=== PATIENT | female | born 1960 | race American Indian/Alaskan Native ===

== ENCOUNTER 2020-09-22 08:55 | Emergency (ER) | payer SELFPAY ==
[2020-09-22] MEDS ORDERED: hydrALAZINE 25 MG TAB PO ONE ×2 (09:01→09:58)
--- NOTE | 2020-09-22 09:10 | Emergency Department Report ---
ED General Adult HPI - General Chief complaint: High BP Stated complaint: BLOOD PRESSURE Time Seen by Provider: 09/22/20 08:58 Source: patient Mode of arrival: Ambulatory Limitations: No Limitations - History of Present Illness Initial comments: 60-year-old -[place] female patient presents with complaints of elevated blood pressure today. She reports that she has been out of her blood pressure medication for 1 month due to being laid off and that upon waking this morning, she had a mild headache that she describes as a tightness around her head. Patient reports when she checked her blood pressure it was in the 220s systolically. Patient states her blood pressure normally runs around 120/80 when she is compliant with her losartan/HCTZ combo med. She denies any vision changes, nausea/vomiting, worst headache of her life, thunderclap onset, numbness/tingling/weakness in her limbs, difficulty with speech/ambulation, confusion, or memory loss. No history of CVA per patient. She denies any other past medical history. Patient states she is otherwise feeling well. Severity scale (0 -10): 0 - Related Data Previous Rx's Medication Instructions Recorded Last Taken Type Losartan/Hydrochlorothiazide 1 each PO QDAY 30 Days #30 tablet 09/22/20 Unknown Rx [Losartan-Hctz 100-25 mg Tab] Allergies Allergy/AdvReac Type Severity Reaction Status Date / Time No Known Allergies Allergy Unverified 09/22/20 08:57 ED Review of Systems ROS: Stated complaint: BLOOD PRESSURE Other details as noted in HPI Constitutional: denies: chills, diaphoresis, fever, malaise Eyes: denies: eye pain, vision change Respiratory: denies: cough, shortness of breath Cardiovascular: denies: chest pain Gastrointestinal: denies: abdominal pain, nausea, vomiting Genitourinary: denies: urgency, frequency, hematuria Neurological: headache. denies: weakness, numbness, paresthesias, confusion, abnormal gait, vertigo Hematological/Lymphatic: denies: swollen glands ED Past Medical Hx - Past Medical History Hx Hypertension: Yes Additional medical history: palpitation - Surgical History Past Surgical History?: No - Social History Smoking Status: Never Smoker - Medications Home Medications: Home Medications Medication Instructions Recorded Confirmed Last Taken Type Losartan/Hydrochlorothiazide 1 each PO QDAY 30 Days #30 tablet 09/22/20 Unknown Rx [Losartan-Hctz 100-25 mg Tab] ED Physical Exam - General Limitations: No Limitations General appearance: alert, in no apparent distress - Head Head exam: Present: atraumatic, normocephalic - Eye Eye exam: Present: normal appearance, PERRL. Absent: scleral icterus - ENT ENT exam: Present: normal exam - Neck Neck exam: Present: normal inspection - Respiratory Respiratory exam: Present: normal lung sounds bilaterally. Absent: respiratory distress - Cardiovascular Cardiovascular Exam: Present: regular rate, normal rhythm - Extremities Exam Extremities exam: Present: full ROM - Back Exam Back exam: Present: normal inspection - Neurological Exam Neurological exam: Present: alert, oriented X3, CN II-XII intact, normal gait. Absent: motor sensory deficit - Expanded Neurological Exam Expanded Cerebellar function: Finger to Nose: Normal, Heel to Poe: Normal, Romberg: Normal Sensory exam: Upper Extremity Light Touch: Normal, Lower Extremity Light Touch: Normal Motor strength exam: RUE: 5, LUE: 5, RLE: 5, LLE: 5 Best Eye Response (Baldemar): (4) open spontaneously Best Motor Response (Phelps): (6) obeys commands Best Verbal Response (Baldemar): (5) oriented Baldemar Total: 15 - Psychiatric Psychiatric exam: Present: normal affect, normal mood - Skin Skin exam: Present: warm, dry, intact, normal color. Absent: rash, cyanosis, diaphoretic, ecchymosis ED Course Vital Signs 09/22/20 09/22/20 09/22/20 08:59 09:00 09:10 Temperature 97.4 F L Pulse Rate 79 76 76 Respiratory 18 Rate Blood Pressure 239/117 239/117 Blood Pressure 239/117 [Right] O2 Sat by Pulse 100 100 Oximetry 09/22/20 09/22/20 09:58 10:17 Temperature Pulse Rate 76 Respiratory Rate Blood Pressure 201/108 209/108 Blood Pressure [Right] O2 Sat by Pulse Oximetry ED Medical Decision Making - Medical Decision Making 60-year-old -[place] female patient presents with complaints of elevated blood pressure today. She reports that she has been out of her blood pressure medication for 1 month due to being laid off and that upon waking this morning, she had a mild headache that she describes as a tightness around her head. Patient reports when she checked her blood pressure it was in the 220s systolically. Patient states her blood pressure normally runs around 120/80 when she is compliant with her losartan/HCTZ combo med. She denies any vision changes, nausea/vomiting, worst headache of her life, thunderclap onset, numbness/tingling/weakness in her limbs, difficulty with speech/ambulation, confusion, or memory loss. No history of CVA per patient. She denies any other past medical history. Patient states she is otherwise feeling well. Patient given hydralazine 100 mg and clonidine 0.1 mg. Blood pressure now improved to 178/98. She states she has no further headache and is feeling well. Refills of patient's medications given and patient provided with primary care referral list. Recommend follow-up within 2 to 3 days. Discussed signs and symptoms that should prompt immediate return to the emergency department in detail with patient who verbalized understanding. Critical care attestation.: If time is entered above; I have spent that time in minutes in the direct care of this critically ill patient, excluding procedure time. ED Disposition Clinical Impression: Uncontrolled hypertension Disposition: DC- TO HOME OR SELFCARE Is pt being admited?: No Condition: Stable Instructions: Managing Your Hypertension, Hypertension (ED) Prescriptions: Losartan/Hydrochlorothiazide [Losartan-Hctz 100-25 mg Tab] 1 each PO QDAY 30 Days #30 tablet Referrals: [facility] [Provider Group] - 09/24/20
[2020-09-22] MEDS ORDERED: cloNIDine 0.1 MG TAB PO ONE (11:03)
[2020-09-22 18:41] VITALS: BP 178/98
== END 2020-09-22 12:34 | disposition home or self-care (01) ==
LOC: ED 08:55
DX: I10 Essential (primary) hypertension (principal); Z79.899 Other long term (current) drug therapy
CPT/HCPCS: 99282

== ENCOUNTER 2020-09-22 22:42 | Emergency (ER) | payer SELFPAY ==
[2020-09-22 23:04] VITALS: BP 195/95
--- NOTE | 2020-09-22 23:27 | Emergency Department Report ---
Chief Complaint: High BP Stated Complaint: HIGH BP Time Seen by Provider: 09/22/20 23:18 - HPI History of Present Illness: 60-year-old -Irish female with a history of hypertension and noncompliant to her medications. Patient was seen here earlier today for allie vated blood pressure was given clonidine and hydralazine and brought her blood pressure down. Patient presents back to the emergency room stating that her blood pressure was 176/113 at 812 and that is the time she took her blood pressure medicine of losartan and hydrochlorothiazide. Patient denies any chest pain no headache no shortness of breath no tingling of her arms no numbness to her lip. - Exam Vital Signs: Vital Signs 09/22/20 23:01 Temperature 98.0 F Pulse Rate 78 Respiratory 16 Rate Blood Pressure 195/95 O2 Sat by Pulse 99 Oximetry Physical Exam: Gen: alert oriented NAD Cardic: regular rate and rhythm no murmurs appreciated Resp: Clear to auscultation bilateral no wheezing no rales or rhonchi. Abdomen: Soft nontender nondistended normal bowel sounds. Ambulatory without difficulties moving all extremities. MSE screening note: Focused history and physical exam performed. Due to findings the following was ordered: 60-year-old -Irish female with a history of hypertension and noncompliant to her medications. Patient was seen here earlier today for elevated blood pressure was given clonidine and hydralazine and brought her blood pressure down. Patient presents back to the emergency room stating that her blood pressure was 176/113 at 812 and that is the time she took her blood pressure medicine of losartan and hydrochlorothiazide. Patient denies any chest pain no headache no shortness of breath no tingling of her arms no numbness to her lip. Discussed with patient that it would take some time for her losartan hydrochlorothiazide to start decreasing her blood pressure. Discussed with patient that the medication she was given earlier today is quite short acting and that is why her blood pressure is creeping back up. Discussed with patient to take her blood pressure medication in the morning and take it every day and be compliant. Discussed with patient to follow-up with [facility] to establish primary care for chronic disease management. ED Disposition for MSE Clinical Impression: Uncontrolled hypertension Disposition: TO HOME OR SELFCARE Is pt being admited?: No Does the pt Need Aspirin: No Condition: Stable Instructions: Hypertension (ED), Hypertension, Adult, [id number] Additional Instructions: Take your blood pressure medication in the morning and as prescribed. Follow up [facility]. Referrals: [facility] [Provider Group] - 3-5 Days
== END 2020-09-22 23:35 | disposition home or self-care (01) ==
LOC: ED 22:42
DX: I10 Essential (primary) hypertension (principal)
CPT/HCPCS: 99282